=== PATIENT | male | born 2005 | race Caucasian/White ===

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

== ENCOUNTER 2025-02-19 10:23 | Emergency (ER) | payer OTHER ==
[~2025-02-19] VITALS: Ht 167.6 cm; Wt 59.4 kg
[2025-02-19 10:30] VITALS: BP 147/87
[2025-02-19] MEDS ORDERED: DOXY100 PO (10:37)
== END 2025-02-19 10:38 | disposition other institution (70) ==
LOC: ER 10:23
DX: S00.06XA Insect bite (nonvenomous) of scalp, initial encounter (principal); F17.210 Nicotine dependence, cigarettes, uncomplicated; Z59.89 Other problems related to housing and economic circumstances; W57.XXXA Bitten or stung by nonvenomous insect and other nonvenomous arthropods, initial encounter
CPT/HCPCS: 99281

== ENCOUNTER 2025-03-03 16:36 | Emergency (ER) | payer OTHER ==
[~2025-03-03] VITALS: Ht 172.7 cm; Wt 61.2 kg
[~2025-03-03 16:36] MED LIST changes: +DOXY100 PO
[2025-03-03 16:43] VITALS: BP 157/93
== END 2025-03-03 16:50 | disposition home or self-care (01) ==
LOC: ER 16:36
DX: S06.0X1A Concussion with loss of consciousness of 30 minutes or less, initial encounter (principal); S00.03XA Contusion of scalp, initial encounter; W22.8XXA Striking against or struck by other objects, initial encounter; F17.210 Nicotine dependence, cigarettes, uncomplicated; Z79.2 Long term (current) use of antibiotics
CPT/HCPCS: 99283